=== PATIENT | female | born 1935 | race Caucasian/White ===

== ENCOUNTER 2016-09-07 11:36 | Emergency (ER) | payer OTHER ==
[2016-09-07 13:10] VITALS: BP 123/54; PULSE 74; RESP 14; TEMP 100; O2SAT 96
--- NOTE | 2016-09-07 13:38 | UCPHY ---
H & P Patient Type: Established Smoking Status: Former smoker Time Seen by Provider: 09/07/16 13:12 HPI/ROS: CHIEF COMPLAINT: Right hand injury HISTORY OF PRESENT ILLNESS: 80-year-old female presents to Urgent Care with injury to her right hand. Patient states on Friday, 3 days ago, she was walking her dog and slipped on some ice and fell injuring her right hand. She did not hit her head or lose consciousness. She has isolated pain to her right hand. She is right-hand dominant. She is concerned because she still notices swelling. She denies any presyncopal symptoms prior to her fall. ROS: She denies numbness or tingling in her fingers, pain in her right wrist, right elbow or shoulder. (Jayne Garner) Past Medical/Surgical History: Hypertension, orthopedic surgeries (Jayne Garner) Social History: and lives alone (Jayne Garner) Physical Exam: Examination the right hand reveals swelling across the MCP joints of the right hand from the 2nd through the 5th MCP joints. She has tenderness with palpation especially over the 3rd MCP joint. She has has swelling noted. She has pain with extending all of her fingers. No obvious rotational deformities noted however. She has normal sensation to light touch with normal 2 point discrimination. Strong radial pulse at the right wrist. No puncture wound or abrasion or signs of open fracture. Full range of motion of her right wrist and right elbow. No signs of trauma to her head. She is mentating normally and answering questions appropriately. (Jayne Garner) Constitutional: Initial Vital Signs Temperature (C) 37.8 C 09/07/16 13:04 Heart Rate 74 09/07/16 13:04 Respiratory Rate 14 09/07/16 13:04 Blood Pressure 123/54 H 09/07/16 13:04 O2 Sat (%) 96 09/07/16 13:04 O2 Delivery Mode Room Air Allergies/Adverse Reactions: oxycodone [Oxycodone] Allergy (Severe, Verified 09/07/16 13:01) Other-Enter Comments celecoxib [Celecoxib] Allergy (Intermediate, Verified 09/07/16 13:01) Other-Enter Comments codeine [Codeine] Allergy (Intermediate, Verified 09/07/16 13:01) Vomiting NSAIDS (Non-Steroidal Anti-Inflamma [Nsaids] Allergy (Intermediate, Verified 03/17 13:01) Unknown Home Medications: Medication Instructions Recorded Aspirin [Aspirin 81mg (OTC)] 81 mg PO Q2D 05/06/12 Gabapentin [Neurontin 300 MG (*)] 300 mg PO TID@1300,1700,2100 05/06/12 Lisinopril [Zestril 10 mg (RX)] 10 mg PO DAILY 05/06/12 Pantoprazole Sodium [Protonix 40mg 40 mg PO DAILY 05/06/12 (RX)] Zolpidem Tartrate [Ambien 10 mg] 7 mg PO HS 05/06/12 Acetaminophen [Tylenol 325 mg tab 650 mg PO DAILY PRN 05/15/12 (OTC)] Hydrochlorothiazide 25 mg PO DAILY 01/04/14 [Hydrochlorothiazide 25 MG (RX)] Venlafaxine Xr [Effexor Xr 75MG 150 mg PO DAILY 01/04/14 (RX)] Vitamin D3 11/23/14 SIMVASTATIN 03/04/15 MDM/Departure - MDM Diagnostics: X-rays of the right hand reveal possible avulsion fractures noted to the right 3rd metacarpal head at MCP joint. This is reviewed by myself the PAC system. Radiology interpretation to follow. 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 (Jayne Garner) ED Course/Re-evaluation: 80-year-old female presents with right hand injury. X-rays reveal possible avulsion fracture at MCP joint of the right 3rd finger. Patient was placed in a splint. She was given orthopedic referral. She has seen Dr. Oh in the past. She was also given information for Dr. Mark Powers who is on-call for Orthopedics today. (Jayne Garner) - Depart Disposition: Home, Routine, Self-Care Clinical Impression: Right hand fracture Condition: Good Instructions: Hand Fracture (ED) Additional Instructions: Keep splint on and keep it dry. Follow up with orthopedist this coming week to recheck. Referrals: Regan Oh MD [Medical Doctor] - 2-3 days without fail Mark Powers MD [Medical Doctor] - 2-3 days without fail (Orthopedist on- call) - PQRS PQRS Measurement: 134: Depression screening and followup, PRIME MD-PHQ2 (12 years and older) Over the last 2 weeks, how often have you been bothered by any of the following problems? 1. Feeling down, depressed, or hopeless? 2. Little interest or pleasure in doing things? Patient answered no to both 1 and 2 130: Documentation of medications. Reviewed all patient medications, doses, route and frequency. 226: Do you smoke? No. 47: 65 and older: Advanced care planning. Patient designates surrogate decision maker as oldest daughter. Patient has advanced directive. 51: 18 years old and older with diagnosis of COPD, spirometry performance. Patient has no history of COPD 52: 18 years old and older with COPD and symptoms of COPD or FEV1<60% predicted prescribed a B Agonist. Not applicable (Jayne Garner)
--- NOTE | 2016-09-07 15:13 | DX ---
Right hand - 3 views dated September 07, 2016 Indication: Swelling and pain. Findings: The right 2nd and 3rd metacarpal phalangeal joints have moderate joint space narrowing an d hook osteophytes emanating off the 2nd and 3rd metacarpal head characteristic of CPPD arthropathy. Erosive osteoarthritis involves the first metacarpocarpal joint and the distal interphalangeal joints . No fracture, bone lesion or evidence of stress response. Impression: 1. Erosive osteoarthritis and CPPD arthropathy. 2. No fracture or bone lesion.
== END 2016-09-07 14:00 | disposition home or self-care (01) ==
LOC: CED 11:36
DX: M19.041 Primary osteoarthritis, right hand (principal)
CPT/HCPCS: 73130; G0463; 99214-PO

== ENCOUNTER → 2016-09-11 | Outpatient (CLI) | payer OTHER ==
--- NOTE | 2016-09-11 18:08 | MA ---
Screening Digital Mammogram Clinical Indications: Routine screening. History of benign stereotactic left breast biopsy. Technique: Standard cephalocaudal and mediolateral oblique projections are obtained. This examinati on is processed by the [employer] computer-aided detection system. Comparison: Mammograms September 08, 2015, September 05, 2014, August 30, 2013, August 21, 2012, January [id number], August 28, 2011, July 23, 2011, July 20, 2011, June 26, 2010, May 12 9. Breast density: Type B: There are scattered areas of fibroglandular density. Findings: CAD was reviewed. No suspicious calcifications, masses, or areas of architectural distorti on are identified. Impression: Negative mammogram. BI-RADS 1. Recommendation: Routine screening is recommended in one year. [facility] will send a result letter to the patient. Negative mammography should not preclude additional workup of a clinically suspicious finding. The patient's information is entered into a reminder system with a target due date for her next mammo gram.
== END ==
LOC: FIMAGING 11:40
DX: Z12.31 Encounter for screening mammogram for malignant neoplasm of breast (principal)
CPT/HCPCS: G0202

== ENCOUNTER → 2016-09-17 | Outpatient (CLI) | payer OTHER ==
--- NOTE | 2016-09-18 16:42 | DX ---
2 view chest - September 17, 2016 at 1526 hours Indication: preoperative evaluation. Comparison: January 13, 2014. FINDINGS: The right lung is clear. Heart size is normal. Multilevel thoracolumbar fusion is again vis ualized. Linear left upper lobe parenchymal density is stable compared to 33 months prior. IMPRESSION: 1. Stable left upper lobe density. This may represent residual lung carcinoma or scarring. This has b een stable since December 2013. 2. Multilevel thoracolumbar fusion.
== END ==
LOC: FIMAGING 15:22
PROVIDERS: ATTEND Orthopaedic Surgery
DX: Z01.810 Encounter for preprocedural cardiovascular examination (principal); R91.8 Other nonspecific abnormal finding of lung field; Z98.1 Arthrodesis status

== ENCOUNTER → 2016-09-17 | Outpatient (CLI) | payer OTHER ==
--- NOTE | 2016-09-17 14:57 | CPEKG ---
Heart Rate: 92 RR Interval: 652 P-R Interval: 168 QRSD Interval: 86 QT Interval: 364 QTC Interval: 451 P [place]: 47 QRS [place]: 45 T Wave [place]: 73 EKG Severity - NORMAL ECG - EKG Impression: SINUS RHYTHM Electronically Signed By: Jake Jerez 17-Sep-2016 17:23:49
== END ==
LOC: FCP 14:31
PROVIDERS: ATTEND Orthopaedic Surgery
DX: Z01.810 Encounter for preprocedural cardiovascular examination (principal)

== ENCOUNTER 2017-11-15 18:19 | Emergency (ER) | payer OTHER ==
[2017-11-15 18:34] VITALS: RESP 16; TEMP 98.2
[2017-11-15 18:44] LABS: PLATELET COUNT 372 10^3/uL (150-400)
[2017-11-15 18:54] LABS: INR 1.01 (0.83-1.16); PROTIME(PATIENT) 13.2 SEC (12.0-15.0)
--- NOTE | 2017-11-15 19:00 | EDPHY ---
H & P Stated Complaint: right leg swelling one day Time Seen by Provider: 11/15/17 18:23 HPI/ROS: 82-year-old female presents complaining of right knee and lower leg swelling that she noticed today. She states she has had a DVT in the past after surgery. She denies any other symptoms at this time no fevers no chills no shortness of breath no chest pain. Review of systems As per HPI General no fever no chills no weakness HEENT no eye pain no eye discharge. No eye redness, no sore throat Respiratory no cough, no shortness of breath Cardiac no chest pain, positive peripheral edema GI no abdominal pain, no diarrhea, no constipation, no nausea, no vomiting no flank pain, no hematuria, no dysuria Musculoskeletal no myalgias, positive joint pain Heme no easy bruising, no easy bleeding Endo no polyuria, no polydipsia Skin no rashes, no pruritus Neuro no syncope, no dizziness, no headaches Psych is no suicidal ideation, no homicidal ideation Source: Patient Exam Limitations: No limitations - Personal History Current Tetanus Diphtheria and Acellular Pertussis (TDAP): No Tetanus Vaccine Date: 2005 - Medical/Surgical History Hx Asthma: No Hx Chronic Respiratory Disease: No Hx Diabetes: No Hx Cardiac Disease: Yes Hx Renal Disease: Yes Hx Cirrhosis: No Hx Alcoholism: No Hx HIV/AIDS: No Hx Splenectomy or Spleen Trauma: No Other PMH: bilat knee replacements,hypertension,high creatinine levels, blood clot 2010,. bilat rotator cuff repair. back surgeries x 4. bilat bunion surgeries. ca of uterus & lung/hyst. fx left shoulder October 2014. high cholesterol, htn, kidney disease - Family History Significant Family History: No pertinent family hx - Social History Smoking Status: Former smoker Alcohol Use: None Drug Use: None - Physical Exam Exam: 82-year-old female alert and oriented no acute distress nontoxic appearance, afebrile Seated on gurney comfortably reading her book club book, "[place]" Atraumatic normocephalic Neck no JVD Lungs clear to auscultation, no respiratory distress Heart regular rate and rhythm Extremities no cyanosis no clubbing both lower ext with multiple small varicosities no erythema right lower ext with right knee effusion, good rom no erythema no laxity neg calf tenderness distal pulses present legs, feet with normal temperature Constitutional: Initial Vital Signs Temperature (C) 36.8 C 11/15/17 18:25 Heart Rate 93 11/15/17 18:25 Respiratory Rate 16 11/15/17 18:25 Blood Pressure 149/77 H 11/15/17 18:25 O2 Sat (%) 91 L 11/15/17 18:25 O2 Delivery Mode Room Air Allergies/Adverse Reactions: oxycodone [Oxycodone] Allergy (Severe, Verified 11/15/17 18:34) Other-Enter Comments celecoxib [Celecoxib] Allergy (Intermediate, Verified 11/15/17 18:34) Other-Enter Comments codeine [Codeine] Allergy (Intermediate, Verified 11/15/17 18:34) Vomiting NSAIDS (Non-Steroidal Anti-Inflamma [Nsaids] Allergy (Intermediate, Verified 18:34) Unknown Home Medications: Medication Instructions Recorded Aspirin [Aspirin 81mg (OTC)] 81 mg PO Q2D 05/06/12 Gabapentin [Neurontin 300 MG (*)] 300 mg PO TID@1300,1700,2100 05/06/12 Lisinopril [Zestril 10 mg (RX)] 10 mg PO DAILY 05/06/12 Pantoprazole Sodium [Protonix 40mg 40 mg PO DAILY 05/06/12 (RX)] Zolpidem Tartrate [Ambien 10 mg] 7 mg PO HS 05/06/12 Acetaminophen [Tylenol 325 mg tab 650 mg PO DAILY PRN 05/15/12 (OTC)] Hydrochlorothiazide 25 mg PO DAILY 01/04/14 [Hydrochlorothiazide 25 MG (RX)] Venlafaxine Xr [Effexor Xr 75MG 150 mg PO DAILY 01/04/14 (RX)] Vitamin D3 11/23/14 SIMVASTATIN 03/04/15 Medical Decision Making - Diagnostics Imaging Results: Imaging Impressions Extremity Venous Study 11/15/17 18:38 Impression: No deep venous thrombosis right leg. Results called and discussed with Cristal Eng MD at 11/15/2017 20:00. ED Course/Re-evaluation: Patient seen and evaluated for right lower leg swelling, concern for possible DVT. CBC within normal limits no elevation of white blood cell count Sed rate 16 D-dimer elevated Ultrasound negative for DVT Patient's exam consistent with a right knee effusion Impression Right knee effusion with some peripheral right lower extremity edema Plan Advised wearing compression stockings for lower extremities however patient is unable to put them on Advise rest ice elevation for right knee Follow-up with primary care physician and/or follow up with her orthopedic provider. Differential Diagnosis: Differential diagnosis considered but not limited to: Right lower extremity cellulitis, right lower extremity DVT, right knee effusion , peripheral edema - Data Points Laboratory Results: Laboratory Results 11/15/17 18:35 18 18:35 11/15/17 11/15/17 11/15/17 18:35 18:35 18:35 WBC 7.98 10^3/uL 10^3/uL (3.80-9.50) RBC 3.64 10^6/uL L 10^6/uL (4.18-5.33) Hgb 11.7 g/dL L g/dL (12.6-16.3) Hct 35.3 % L % (38.0-47.0) MCV 97.0 fL fL (81.5-99.8) MCH 32.1 pg pg (27.9-34.1) MCHC 33.1 g/dL g/dL (32.4-36.7) RDW 13.6 % % (11.5-15.2) Plt Count 372 10^3/uL 10^3/uL (150-400) MPV 8.5 fL L fL (8.7-11.7) Neut % (Auto) 60.0 % % (39.3-74.2) Lymph % (Auto) 28.3 % % (15.0-45.0) [place] % (Auto) 7.9 % % (4.5-13.0) Eos % (Auto) 2.8 % % (0.6-7.6) Baso % (Auto) 0.9 % % (0.3-1.7) Nucleat RBC Rel Count 0.0 % % (0.0-0.2) Absolute Neuts (auto) 4.79 10^3/uL 10^3/uL (1.70-6.50) Absolute Lymphs (auto) 2.26 10^3/uL 10^3/uL (1.00-3.00) Absolute Monos (auto) 0.63 10^3/uL 10^3/uL (0.30-0.80) Absolute Eos (auto) 0.22 10^3/uL 10^3/uL (0.03-0.40) Absolute Basos (auto) 0.07 10^3/uL 10^3/uL (0.02-0.10) Absolute Nucleated RBC 0.00 10^3/uL 10^3/uL (0-0.01) Immature Gran % 0.1 % % (0.0-1.1) Immature Gran # 0.01 10^3/uL 10^3/uL (0.00-0.10) ESR 16 MM/HR MM/HR (0-30) PT 13.2 SEC SEC (12.0-15.0) INR 1.01 (0.83-1.16) APTT 28.6 SEC SEC (23.0-38.0) D-Dimer 3.50 ug/mLFEU H ug/mLFEU (0.00-0.50) Sodium 138 mEq/L mEq/L (135-145) Potassium 4.5 mEq/L mEq/L (3.5-5.2) Chloride 99 mEq/L mEq/L (97-110) Carbon Dioxide 27 mEq/l mEq/l (22-31) Anion Gap 12 mEq/L mEq/L (8-16) BUN 23 mg/dL mg/dL (7-23) Creatinine 1.7 mg/dL H mg/dL (0.6-1.0) Estimated GFR 29 Glucose 119 mg/dL H mg/dL (70-100) Calcium 9.7 mg/dL mg/dL (8.5-10.4) Departure - Departure Disposition: Home, Routine, Self-Care Clinical Impression: Swelling of right lower extremity, Effusion, right knee Condition: Good Instructions: Leg Edema (ED), Swollen Knee Joint (ED) Additional Instructions: Follow up with your primary care this week. Referrals: Cristina Salcedo MD [Primary Care Provider] - As per Instructions
[2017-11-15 20:22] VITALS: BP 116/72; PULSE 71; O2SAT 94
== END 2017-11-15 20:15 | disposition home or self-care (01) ==
LOC: CED 18:19
DX: M25.461 Effusion, right knee (principal); I10 Essential (primary) hypertension; Z79.82 Long term (current) use of aspirin; Z87.891 Personal history of nicotine dependence
CPT/HCPCS: 80048-PO; 85025-PO; 85378-PO; 85610-PO; 85652-PO; 85730-PO; 93971-PO

== ENCOUNTER 2018-01-16 16:54 | Emergency (ER) | payer OTHER ==
[2018-01-16 17:05] VITALS: BP 142/72
[2018-01-16] MEDS ORDERED: AZITHROMYCIN 250 MG TAB PO ONE (17:48)
[2018-01-16] MEDS ORDERED: ALBUTEROL INH PREPACK MDI TAKEHOME ONE (17:48)
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
== END 2018-01-16 18:05 | disposition home or self-care (01) ==
LOC: CED 16:54
DX: J20.9 Acute bronchitis, unspecified (principal); I10 Essential (primary) hypertension; Z79.82 Long term (current) use of aspirin; Z87.891 Personal history of nicotine dependence
CPT/HCPCS: 71046-PO

== ENCOUNTER → 2018-06-10 | Outpatient (CLI) | payer OTHER ==
[~2018-06-10] MED LIST: IOPAMIDOL (ISOVUE 370) 100 ML BTL IV ONE; LIDOCAINE 1% 300 MG/30 ML SDV ONE
== END ==
LOC: FIMAGING 10:26
PROVIDERS: ATTEND Orthopaedic Surgery
DX: Z47.1 Aftercare following joint replacement surgery (principal); Z96.651 Presence of right artificial knee joint; M71.21 Synovial cyst of popliteal space [Baker], right knee
CPT/HCPCS: 73701; Q9967